=== PATIENT | female | born 1960 | race Caucasian/White ===

== ENCOUNTER 2017-04-09 13:18 | Inpatient (IN) | payer BC ==
[2017-04-09] MEDS ORDERED: Morphine 10 MG/ML Syringe IV ONE (13:57)
[2017-04-09] MEDS ORDERED: Ketorolac 30 MG/ML SDV IVPUSH ONE (13:57)
[2017-04-09] MEDS ORDERED: Ondansetron 4 MG/2 ML SDV IVPUSH ONE (13:57)
[2017-04-09] MEDS ORDERED: Sodium Chloride 0.9% 1,000 ML IV ONE (13:57)
--- NOTE | 2017-04-09 14:12 | EDM.PDOC ---
ED HPI GENERAL MEDICAL PROBLEM - General Chief Complaint: Abdominal Pain Stated Complaint: ABDOMINAL PAIN Time Seen by Provider: 04/09/17 13:45 Source of Information: Reports: Patient, Family History Limitations: Reports: No Limitations - History of Present Illness INITIAL COMMENTS - FREE TEXT/NARRATIVE: History of present illness: [56-year-old female comes in complaining of left-sided abdominal pain. Patient has underlying Parkinson's and indicated she also has a history of colitis.] Review of systems: As per history of present illness and below otherwise all systems reviewed and negative. Past medical history: As per history of present illness and as reviewed below otherwise noncontributory. Surgical history: As per history of present illness and as reviewed below otherwise noncontributory. Social history: No reported history of drug or alcohol abuse. Family history: As per history of present illness and as reviewed below otherwise noncontributory. Physical exam: HEENT: Atraumatic, normocephalic, pupils reactive, negative for conjunctival pallor or scleral icterus, mucous membranes moist, throat clear, neck supple, nontender, trachea midline. Lungs: Clear to auscultation, breath sounds equal bilaterally, chest nontender. Heart: S1S2, regular, negative for clicks, rubs, or JVD. Abdomen: soft, nondistended, exquisite tenderness to both upper and lower quadrants on the left. Negative for masses or hepatosplenomegaly. Negative for costovertebral tenderness. Pelvis: Stable nontender. Genitourinary: Deferred. Rectal: Deferred. Extremities: Atraumatic, negative for cords or calf pain. Neurovascular unremarkable. Neuro: Awake, alert, oriented. Cranial nerves II through XII unremarkable. Cerebellum unremarkable. Motor and sensory unremarkable throughout. Exam nonfocal. Diagnostics: [CBC, CMP, amylase, lipase, UA, CT of abdomen] Therapeutics: [IV fluid, morphine, Zofran,] Impression: [Diverticulitis] Plan: [admit to dr Roger ] Definitive disposition and diagnosis as appropriate pending reevaluation and review of above. Duration: Day(s): Left Lower Abdominal pain Pain Score (Numeric/FACES): 6 - Related Data Allergies Allergy/AdvReac Type Severity Reaction Status Date / Time pramipexole [From Mirapex] Allergy impulsivene Verified 04/09/17 13:51 ss ropinirole [From Requip] Allergy impulsivene Verified 04/09/17 13:51 ss Home Meds: Home Meds Aspirin [Halfprin] 81 mg PO ONETIME 04/09/17 [History] Carbidopa/Levodopa [Carbidopa-Levo 25-100 MG ODT] 1 tab PO QID 04/09/17 [History ] ED ROS GENERAL - Review of Systems Review Of Systems: See Below (History of present illness) ED EXAM, GI/ABD - Physical Exam Exam: See Below (History of present illness) Course - Vital Signs Last Recorded V/S: Last Vital Signs Temp 36.5 C 04/09/17 19:15 Pulse 85 04/09/17 19:15 Resp 16 04/09/17 19:15 BP 137/75 04/09/17 19:15 Pulse Ox 96 04/09/17 19:15 - Orders/Labs/Meds Orders: Active Orders 24 hr Category Date Time Status Patient Status [ADT] Stat ADT 04/09/17 19:44 Ordered Abdomen Pelvis w Cont [CT] Stat Exams 04/09/17 16:49 Taken Levofloxacin/Dextrose 5%-Water [Levaquin in D5W 750 MG/ Med 04/09/17 19:43 Ordered 150 ML] 750 mg Premix Bag 1 bag IV ONETIME metroNIDAZOLE/Normal Saline [Flagyl 500 MG in NS 100 ML Med 04/09/17 19:43 Ordered ] 500 mg Premix Bag 1 bag IV ONETIME Medication Orders Levofloxacin/Dextrose 750 mg/ (Premix) 150 mls @ 100 mls/hr IV ONETIME ONE Stop: 04/09/17 21:12 Metronidazole 500 mg/ Premix 100 mls @ 100 mls/hr IV ONETIME ONE Stop: 04/09/17 20:42 Labs: Laboratory Tests 04/09/17 04/09/17 04/09/17 Range/Units 14:40 14:40 16:30 WBC 11.55 H (4.0-11.0) K/uL RBC 4.54 (4.30-5.90) M/uL Hgb 15.0 (12.0-16.0) g/dL Hct 43.9 (36.0-46.0) % MCV 96.7 (80.0-98.0) fL MCH 33.0 H (27.0-32.0) pg MCHC 34.2 (31.0-37.0) g/dL RDW Std Deviation 48.8 (28.0-62.0) fl RDW Coeff of Scott 14 (11.0-15.0) % Plt Count 217 (150-400) K/uL MPV 10.60 (7.40-12.00) fL Neut % (Auto) 77.1 (48.0-80.0) % Lymph % (Auto) 13.0 L (16.0-40.0) % [place] % (Auto) 9.4 (0.0-15.0) % Eos % (Auto) 0.3 (0.0-7.0) % Baso % (Auto) 0.2 (0.0-1.5) % Neut # (Auto) 8.9 H (1.4-5.7) K/uL Lymph # (Auto) 1.5 (0.6-2.4) K/uL [place] # (Auto) 1.1 H (0.0-0.8) K/uL Eos # (Auto) 0.0 (0.0-0.7) K/uL Baso # (Auto) 0.0 (0.0-0.1) K/uL Nucleated RBC % 0.0 /100WBC Nucleated RBCs # 0 K/uL Sodium 140 (136-146) mmol/L Potassium 3.8 (3.5-5.1) mmol/L Chloride 106 (98-110) mmol/L Carbon Dioxide 24 (21-31) mmol/L BUN 25 H (6.0-23.0) mg/dL Creatinine 0.8 (0.6-1.5) mg/dL Est Cr Clr Drug Dosing 80.15 mL/min Estimated GFR (MDRD) > 60.0 ml/min Glucose 102 (60-110) mg/dL Calcium 9.4 (8.8-10.8) mg/dL Total Bilirubin 0.8 (0.1-1.5) mg/dL AST 14 (5-40) IU/L ALT 15 (8-54) IU/L Alkaline Phosphatase 88 (40-150) Total Protein 7.3 (6.0-8.0) g/dL Albumin 4.2 (3.5-5.0) g/dL Globulin 3.1 (2.0-3.5) g/dL Albumin/Globulin Ratio 1.4 (1.3-2.8) Amylase 41 (10-90) U/L Lipase 20 (7-80) U/L Urine Color YELLOW Urine Appearance CLEAR Urine pH 5.5 (5.0-8.0) Ur Specific [place] 1.025 (1.001-1.035) Urine Protein NEGATIVE (NEGATIVE) mg/dL Urine Glucose (UA) NEGATIVE (NEGATIVE) mg/dL Urine Ketones TRACE H (NEGATIVE) mg/dL Urine Occult Blood NEGATIVE (NEGATIVE) Urine Nitrite NEGATIVE (NEGATIVE) Urine Bilirubin SMALL H (NEGATIVE) Urine Ictotest NEGATIVE Urine Urobilinogen 0.2 (<2.0) EU/dL Ur Leukocyte Esterase NEGATIVE (NEGATIVE) Urine RBC 0-2 (0-2/HPF) Urine WBC 4-6 (0-5/HPF) Ur Epithelial Cells FEW (NONE-FEW) Urine Bacteria FEW (NEGATIVE) Urine Mucus LIGHT (NONE-MOD) Meds: Medications Generic Name Dose Route Start Last Admin Trade Name Gonsalo PRN Reason Stop Dose Admin Levofloxacin/Dextrose 750 mg/ 150 mls @ 100 mls/hr 04/09/17 19:43 Premix IV 04/09/17 21:12 ONETIME ONE Metronidazole 500 mg/ Premix 100 mls @ 100 mls/hr 04/09/17 19:43 IV 04/09/17 20:42 ONETIME ONE Discontinued Medications Generic Name Dose Route Start Last Admin Trade Name Gonsalo PRN Reason Stop Dose Admin Fentanyl 50 mcg 04/09/17 19:44 Sublimaze IVPUSH 04/09/17 19:45 ONETIME ONE Sodium Chloride 1,000 mls @ 999 mls/hr 04/09/17 13:57 04/09/17 14:45 Normal Saline IV 04/09/17 14:57 999 mls/hr STAT ONE Administration Iopamidol 95 ml 04/09/17 18:44 04/09/17 19:06 Isovue Multipack-370 (76%) IVPUSH 04/09/17 18:45 95 ml ONETIME STA Administration Ketorolac Tromethamine 30 mg 04/09/17 13:57 04/09/17 14:48 Toradol IVPUSH 04/09/17 13:58 30 mg ONETIME ONE Administration Morphine Sulfate 2 mg 04/09/17 13:57 04/09/17 14:56 Morphine IV 04/09/17 13:58 Not Given ONETIME ONE Morphine Sulfate 2 mg 04/09/17 14:30 04/09/17 14:54 Morphine IVPUSH 04/09/17 14:31 2 mg ONETIME ONE Administration Morphine Sulfate 2 mg 04/09/17 16:41 04/09/17 17:21 Morphine IVPUSH 04/09/17 16:42 2 mg ONETIME ONE Administration Ondansetron HCl 4 mg 04/09/17 13:57 04/09/17 14:45 Zofran IVPUSH 04/09/17 13:58 4 mg ONETIME ONE Administration Departure - Departure Time of Disposition: 19:47 Disposition: Admitted As Inpatient 67 Condition: Good Clinical Impression: Diverticulitis - Discharge Information Referrals: PCP,None [Primary Care Provider] - Forms: ED Department Discharge - My Orders Last 24 Hours: My Active Orders 04/09/17 16:49 Abdomen Pelvis w Cont [CT] Stat 04/09/17 19:43 Levofloxacin/Dextrose 5%-Water [Levaquin in D5W 750 MG/150 ML] 750 mg Premix Bag 1 bag IV ONETIME metroNIDAZOLE/Normal Saline [Flagyl 500 MG in NS 100 ML] 500 mg Premix Bag 1 bag IV ONETIME 04/09/17 19:44 Patient Status [ADT] Stat - Assessment/Plan Last 24 Hours: My Active Orders 04/09/17 16:49 Abdomen Pelvis w Cont [CT] Stat 04/09/17 19:43 Levofloxacin/Dextrose 5%-Water [Levaquin in D5W 750 MG/150 ML] 750 mg Premix Bag 1 bag IV ONETIME metroNIDAZOLE/Normal Saline [Flagyl 500 MG in NS 100 ML] 500 mg Premix Bag 1 bag IV ONETIME 04/09/17 19:44 Patient Status [ADT] Stat
[2017-04-09] MEDS ORDERED: Morphine 2 MG/ML Syringe IVPUSH ONE ×2 (14:30→16:41)
[2017-04-09 15:24] LABS: CHLORIDE,CL 106 mmol/L (98-110); SODIUM,NA 140 mmol/L (136-146)
[2017-04-09] MEDS ORDERED: Iopamidol 755 MG/ML 500 ML Multipack Bottle IVPUSH STA (18:44)
[2017-04-09] MEDS ORDERED: metroNIDAZOLE/Normal Saline 500 MG in Premix Bag 1 BAG IV ONE (19:43)
[2017-04-09] MEDS ORDERED: Levofloxacin/Dextrose 5%-Water 750 MG in Premix Bag 1 BAG IV ONE (19:43)
[2017-04-09] MEDS ORDERED: fentaNYL 100 MCG/2 ML SDV IVPUSH ONE (19:44)
[2017-04-09] MEDS ORDERED: Acetaminophen 325 MG Tab PO PRN (20:33)
[2017-04-09] MEDS ORDERED: Temazepam 15 MG Cap PO PRN (20:33)
[2017-04-09] MEDS ORDERED: Docusate Sodium 100 MG Cap PO PRN (20:33)
[2017-04-09] MEDS ORDERED: oxyCODONE 5 MG Tab PO PRN (20:33)
--- NOTE | 2017-04-09 20:38 | PCM.HP ---
H&P History of Present Illness - General Date of Service: 04/09/17 Source of Information: Patient History Limitations: Reports: No Limitations - History of Present Illness Initial Comments - Free Text/Narative: The patient is a 56-year-old lady who is presented to the emergency department with left-sided abdominal pain which is described as cramping, twisting and sharp. The patient had a sudden onset of this yesterday. The patient does have a documented history of diverticulosis and she believes that she ate something wrong. The patient is described a pain is 6 or 7 out of 10 and it has not been relieved by anything specifically. His been aggravated by eating. Patient also has described nausea and vomiting associated with this. She's had no diarrhea or constipation. In the emergency department the patient was started on Levaquin and Flagyl as well as narcotics for pain control. The patient has a history of Parkinson's disease and this medical condition is otherwise been stable. She has no other complaints at the present time. Onset of Symptoms: Reports: Sudden Duration of Symptoms: Reports: Hour(s):, Getting Worse Location: Reports: Abdomen Quality: Reports: Pressure, Same as Previous Episode, Stabbing Severity: Moderate Improves with: Reports: Medication Worsens with: Reports: Eating Associated Symptoms: Reports: Nausea/Vomiting Left Lower Abdominal pain Pain Score (Numeric/FACES): 6 - Related Data Allergies/Adverse Reactions: Allergies Allergy/AdvReac Type Severity Reaction Status Date / Time pramipexole [From Mirapex] Allergy impulsivene Verified 04/09/17 13:51 ss ropinirole [From Requip] Allergy impulsivene Verified 04/09/17 13:51 ss Home Medications: Home Meds Aspirin [Halfprin] 81 mg PO ONETIME 04/09/17 [History] Carbidopa/Levodopa [Carbidopa-Levo 25-100 MG ODT] 2 tab PO QID 04/09/17 [History ] Past Medical History HEENT History: Reports: None Cardiovascular History: Reports: Stents, Other (See Below) Other Cardiovascular History: Left thigh Respiratory History: Reports: None Gastrointestinal History: Reports: Diverticulosis Genitourinary History: Reports: Renal Calculus Musculoskeletal History: Reports: None Neurological History: Reports: Parkinson's Psychiatric History: Reports: None Endocrine/Metabolic History: Reports: None Hematologic History: Reports: None Immunologic History: Reports: None Oncologic (Cancer) History: Reports: None - Infectious Disease History Infectious Disease History: Reports: Chicken Pox, Measles, Mumps - Past Surgical History Female Surgical History: Reports: Lithotripsy/ESWL Social & Family History - Family History Family Medical History: Noncontributory - Tobacco Use Smoking Status *Q: Current Some Day Smoker Years of Tobacco use: 30 Packs/Tins Daily: 0.5 - Caffeine Use Caffeine Use: Reports: Soda - Recreational Drug Use Recreational Drug Use: No H&P Review of Systems - Review of Systems: Review Of Systems: See Below General: Reports: Weakness, Decreased Appetite. Denies: Fever HEENT: Reports: No Symptoms Pulmonary: Reports: No Symptoms Cardiovascular: Reports: No Symptoms Gastrointestinal: Reports: Abdominal Pain, Nausea, Vomiting Genitourinary: Reports: No Symptoms Musculoskeletal: Reports: No Symptoms Skin: Reports: No Symptoms Psychiatric: Reports: No Symptoms Neurological: Reports: Tremors (Chronic, Parkinson's disease) Hematologic/Lymphatic: Reports: No Symptoms Immunologic: Reports: No Symptoms Exam - Exam Exam: See Below - Vital Signs Vital Signs: Last Vital Signs Temp 36.5 C 04/09/17 19:15 Pulse 85 04/09/17 19:15 Resp 16 04/09/17 19:15 BP 137/75 04/09/17 19:15 Pulse Ox 96 04/09/17 19:15 Weight: 76.6 kg - Exam Quality Assessment: No: Supplemental Oxygen General: Alert, Oriented, Mild Distress HEENT: Conjunctiva Clear, EACs Clear, Mucosa Moist & [place], Nares Patent Neck: Supple, Trachea Midline Lungs: Clear to Auscultation, Normal Respiratory Effort Cardiovascular: Regular Rate, Regular Rhythm GI/Abdominal Exam: Soft, Tender (Left lower left upper quadrant), Abnormal Bowel Sounds Back Exam: Normal Inspection Extremities: No Pedal Edema Skin: Warm, Dry Neurological: Cranial Nerves Intact Neuro Extensive - Mental Status: Alert, Oriented x3 Neuro Extensive - Motor, Sensory, Reflexes: Tremor Psychiatric: Alert, Normal Affect, Normal Mood - Patient Data Result Diagrams: 04/10/17 05:24 04/10/17 05:24 *Q Meaningful Use (ADM) - VTE *Q VTE Criteria *Q: - Stroke *Q Stroke Criteria *Q: - AMI *Q AMI Criteria *Q: - Problem List (1) Diverticulitis SNOMED Code(s): 284928628 ICD Code: K57.92 - DVTRCLI OF INTEST, PART UNSP, W/O PERF OR ABSCESS W/O BLEED Status: Acute Priority: High Current Visit: Yes Qualifiers: Diverticulitis site: large intestine Diverticulitis bleeding: without bleeding Diverticulitis complication: without perforation or abscess Qualified Code(s): K57.32 - Diverticulitis of large intestine without perforation or abscess without bleeding (2) Parkinson's disease (tremor, stiffness, slow motion, unstable posture) SNOMED Code(s): 90978061 ICD Code: G20 - PARKINSON'S DISEASE Status: Chronic Priority: Medium Current Visit: Yes Problem List Initiated/Reviewed/Updated: Yes Orders Last 24hrs: Active Orders 24 hr Category Date Time Status Patient Status [ADT] Routine ADT 04/09/17 20:33 Ordered Ambulate [RC] PER UNIT ROUTINE Care 04/09/17 20:34 Ordered Oxygen Therapy [RC] PRN Care 04/09/17 20:33 Ordered Up With Assistance [RC] ASDIRECTED Care 04/09/17 20:33 Ordered VTE/DVT Education [RC] PER UNIT ROUTINE Care 04/09/17 20:33 Ordered Vital Signs [RC] Q4H Care 04/09/17 20:33 Ordered Nothing per Oral Now Diet [DIET] Diet 04/09/17 Breakfast Ordered CBC WITH AUTO DIFF [HEME] AM Lab 04/10/17 05:11 Ordered COMPREHENSIVE METABOLIC PN,CMP [CHEM] AM Lab 04/10/17 05:11 Ordered Acetaminophen [Tylenol] Med 04/09/17 20:33 Ordered 650 mg PO Q4H PRN Carbidopa/Levodopa [Carbidopa-Levo 25-100 MG ODT] Med 04/10/17 00:00 Ordered 1 tab PO QID Docusate Sodium [Colace] Med 04/09/17 20:33 Ordered 100 mg PO BID PRN Enoxaparin [Lovenox] Med 04/10/17 09:00 Ordered 40 mg SUBCUT DAILY Morphine Med 04/09/17 20:33 Ordered 2 mg IVPUSH Q2H PRN Ondansetron [Zofran] Med 04/09/17 20:45 Ordered 4 mg IVPUSH Q6H Sodium Chloride 0.9% @ 125 MLS/HR (1000ml) Med 04/09/17 20:45 Ordered Sodium Chloride 0.9% [Normal Saline] 1,000 ml IV ASDIRECTED Temazepam [Restoril] Med 04/09/17 20:33 Ordered 15 mg PO BEDTIME PRN oxyCODONE Med 04/09/17 20:33 Ordered 5 mg PO Q4H PRN Resuscitation Status Routine Resus Stat 04/09/17 20:33 Ordered Medication Orders Levofloxacin/Dextrose 750 mg/ (Premix) 150 mls @ 100 mls/hr IV ONETIME ONE Stop: 04/09/17 21:12 Metronidazole 500 mg/ Premix 100 mls @ 100 mls/hr IV ONETIME ONE Stop: 04/09/17 20:42 Last Admin: 04/09/17 20:09 Dose: 100 mls/hr Assessment/Plan Comment:: The patient is a 56-year-old lady who will be admitted to inpatient medical surgery floor secondary to her acute diverticulitis. The patient has had this before. The patient will be started on 2 IV antibiotics primarily Levaquin 500 milligrams IV daily as well as metronidazole 500 mg IV 3 times a day. The patient will be kept nothing by mouth for now. She's also fluid support with normal saline at 125 mg per hour. The patient will also be kept on her medication for her Parkinson's disease. I've recommended that the patient continue with an nothing by mouth diet as well as ice chips sparingly and sips of water with her medications. Nausea vomiting will be controlled with the use of Zofran. If the patient has had significant improvement she may likely appropriate for discharge in 1-2 days.
[2017-04-09] MEDS ORDERED: Ondansetron 4 MG/2 ML SDV IVPUSH SCH ×2 (20:45→21:00)
[2017-04-09] MEDS ORDERED: Ondansetron 4 MG/2 ML SDV IVPUSH PRN (22:59)
[2017-04-09] MEDS: Sodium Chloride 0.9% 1,000 ML IV SCH (23:15)
[2017-04-10] MEDS: Carbidopa/Levodopa 25-100 MG Tab PO SCH ×8 (01:34→23:40)
[2017-04-10] MEDS: Morphine 2 MG/ML Syringe IVPUSH PRN ×4 (03:24→20:07)
[2017-04-10 06:06] LABS: CHLORIDE,CL 110 mmol/L (98-110); SODIUM,NA 140 mmol/L (136-146)
[2017-04-10] MEDS: Sodium Chloride 0.9% 1,000 ML IV SCH ×2 (07:26→15:05)
[2017-04-10] MEDS: Enoxaparin 40 MG/0.4 ML Syringe SUBCUT SCH (08:33)
--- NOTE | 2017-04-10 11:59 | PCM.PN ---
- General Info Date of Service: 04/10/17 Admission Dx/Problem (Free Text): acute diverticulitis with intractable abdominal pain Subjective Update: better today. Functional Status: Reports: Pain Controlled. Denies: Tolerating Diet ( currently nothing by mouth) - Review of Systems General: Reports: Weakness HEENT: Reports: No Symptoms Pulmonary: Reports: No Symptoms Cardiovascular: Reports: No Symptoms Gastrointestinal: Reports: Abdominal Pain, Nausea Genitourinary: Reports: No Symptoms Musculoskeletal: Reports: No Symptoms Skin: Reports: No Symptoms Neurological: Reports: Tremors Psychiatric: Reports: No Symptoms - Patient Data Vitals - Most Recent: Last Vital Signs Temp 36.4 C 04/10/17 08:00 Pulse 72 04/10/17 08:00 Resp 16 04/10/17 08:00 BP 111/48 L 04/10/17 08:00 Pulse Ox 93 L 04/10/17 08:00 Weight - Most Recent: 76.6 kg I&O - Last 24 Hours: Intake & Output 04/09/17 04/10/17 04/10/17 22:59 06:59 14:59 Intake Total 40 Output Total 600 Balance -560 Lab Results Last 24 Hours: Laboratory Results - last 24 hr 04/10/17 04/10/17 Range/Units 05:24 05:24 WBC 8.84 (4.0-11.0) K/uL RBC 3.82 L (4.30-5.90) M/uL Hgb 12.3 (12.0-16.0) g/dL Hct 37.4 (36.0-46.0) % MCV 97.9 (80.0-98.0) fL MCH 32.2 H (27.0-32.0) pg MCHC 32.9 (31.0-37.0) g/dL RDW Std Deviation 48.7 (28.0-62.0) fl RDW Coeff of Scott 14 (11.0-15.0) % Plt Count 168 (150-400) K/uL MPV 10.70 (7.40-12.00) fL Neut % (Auto) 72.5 (48.0-80.0) % Lymph % (Auto) 16.3 (16.0-40.0) % [place] % (Auto) 10.3 (0.0-15.0) % Eos % (Auto) 0.8 (0.0-7.0) % Baso % (Auto) 0.1 (0.0-1.5) % Neut # (Auto) 6.4 H (1.4-5.7) K/uL Lymph # (Auto) 1.4 (0.6-2.4) K/uL [place] # (Auto) 0.9 H (0.0-0.8) K/uL Eos # (Auto) 0.1 (0.0-0.7) K/uL Baso # (Auto) 0.0 (0.0-0.1) K/uL Nucleated RBC % 0.0 /100WBC Nucleated RBCs # 0 K/uL Sodium 140 (136-146) mmol/L Potassium 4.5 (3.5-5.1) mmol/L Chloride 110 (98-110) mmol/L Carbon Dioxide 22 (21-31) mmol/L BUN 22 (6.0-23.0) mg/dL Creatinine 0.7 (0.6-1.5) mg/dL Est Cr Clr Drug Dosing 91.96 mL/min Estimated GFR (MDRD) > 60.0 ml/min Glucose 96 (60-110) mg/dL Calcium 8.5 L (8.8-10.8) mg/dL Total Bilirubin 0.8 (0.1-1.5) mg/dL AST 12 (5-40) IU/L ALT < 6 L (8-54) IU/L Alkaline Phosphatase 65 (40-150) Total Protein 5.9 L (6.0-8.0) g/dL Albumin 3.4 L (3.5-5.0) g/dL Globulin 2.5 (2.0-3.5) g/dL Albumin/Globulin Ratio 1.4 (1.3-2.8) Med Orders - Current: Current Medications Acetaminophen (Tylenol) 650 mg PO Q4H PRN PRN Reason: Pain (Mild 1-3)/fever Carbidopa/Levodopa (Sinemet 25-100 Mg) 2 tab PO Q4HR [facility] Docusate Sodium (Colace) 100 mg PO BID PRN PRN Reason: Constipation Enoxaparin Sodium (Lovenox) 40 mg SUBCUT DAILY [facility] Last Admin: 04/10/17 08:33 Dose: 40 mg Sodium Chloride (Normal Saline) 1,000 mls @ 125 mls/hr IV ASDIRECTED [facility] Last Admin: 04/10/17 07:26 Dose: 125 mls/hr Morphine Sulfate (Morphine) 2 mg IVPUSH Q2H PRN PRN Reason: Pain (severe 7-10) Stop: 04/10/17 20:36 Last Admin: 04/10/17 10:43 Dose: 2 mg Ondansetron HCl (Zofran) 4 mg IVPUSH Q6H PRN PRN Reason: Nausea/Vomiting Oxycodone HCl (Oxycodone) 5 mg PO Q4H PRN PRN Reason: Pain (moderate 4-6) Temazepam (Restoril) 15 mg PO BEDTIME PRN PRN Reason: Sleep Discontinued Medications Carbidopa/Levodopa (Sinemet 25-100 Mg) 1 tab PO QID [facility] Last Admin: 04/10/17 01:34 Dose: Not Given Carbidopa/Levodopa (Sinemet 25-100 Mg) 2 tab PO TID [facility] Last Admin: 04/10/17 07:28 Dose: Not Given Fentanyl (Sublimaze) 50 mcg IVPUSH ONETIME ONE Stop: 04/09/17 19:45 Last Admin: 04/09/17 20:09 Dose: 50 mcg Sodium Chloride (Normal Saline) 1,000 mls @ 999 mls/hr IV STAT ONE Stop: 04/09/17 14:57 Last Admin: 04/09/17 14:45 Dose: 999 mls/hr Levofloxacin/Dextrose 750 mg/ (Premix) 150 mls @ 100 mls/hr IV ONETIME ONE Stop: 04/09/17 21:12 Last Admin: 04/09/17 20:41 Dose: 100 mls/hr Metronidazole 500 mg/ Premix 100 mls @ 100 mls/hr IV ONETIME ONE Stop: 04/09/17 20:42 Last Admin: 04/09/17 20:09 Dose: 100 mls/hr Iopamidol (Isovue Multipack-370 (76%)) 95 ml IVPUSH ONETIME STA Stop: 04/09/17 18:45 Last Admin: 04/09/17 19:06 Dose: 95 ml Ketorolac Tromethamine (Toradol) 30 mg IVPUSH ONETIME ONE Stop: 04/09/17 13:58 Last Admin: 04/09/17 14:48 Dose: 30 mg Morphine Sulfate (Morphine) 2 mg IV ONETIME ONE Stop: 04/09/17 13:58 Last Admin: 04/09/17 14:56 Dose: Not Given Morphine Sulfate (Morphine) 2 mg IVPUSH ONETIME ONE Stop: 04/09/17 14:31 Last Admin: 04/09/17 14:54 Dose: 2 mg Morphine Sulfate (Morphine) 2 mg IVPUSH ONETIME ONE Stop: 04/09/17 16:42 Last Admin: 04/09/17 17:21 Dose: 2 mg Ondansetron HCl (Zofran) 4 mg IVPUSH ONETIME ONE Stop: 04/09/17 13:58 Last Admin: 04/09/17 14:45 Dose: 4 mg Ondansetron HCl (Zofran) 4 mg IVPUSH Q6H [facility] Last Admin: 04/10/17 01:44 Dose: Not Given - Exam Quality Assessment: No: Supplemental Oxygen General: Alert, Oriented, No Acute Distress HEENT: Pupils Equal, Pupils Reactive Neck: Supple, Trachea Midline Lungs: Clear to Auscultation, Normal Respiratory Effort Cardiovascular: Regular Rate, Regular Rhythm GI/Abdominal Exam: Normal Bowel Sounds, Soft, Tender (left lower quadrant). No : Guarding, Rigid, Rebound Back Exam: Normal Inspection Extremities: No Pedal Edema Skin: Warm, Dry Neurological: No New Focal Deficit Psy/Mental Status: Alert, Normal Affect - Problem List & Annotations (1) Diverticulitis SNOMED Code(s): 763501802 Code(s): K57.92 - DVTRCLI OF INTEST, PART UNSP, W/O PERF OR ABSCESS W/O BLEED Status: Acute Priority: High Current Visit: Yes Qualifiers: Diverticulitis site: large intestine Diverticulitis bleeding: without bleeding Diverticulitis complication: without perforation or abscess Qualified Code(s): K57.32 - Diverticulitis of large intestine without perforation or abscess without bleeding (2) Parkinson's disease (tremor, stiffness, slow motion, unstable posture) SNOMED Code(s): 21133804 Code(s): G20 - PARKINSON'S DISEASE Status: Chronic Priority: Medium Current Visit: Yes - Problem List Review Problem List Initiated/Reviewed/Updated: Yes - My Orders Last 24 Hours: My Active Orders 04/09/17 20:33 Patient Status [ADT] Routine Oxygen Therapy [RC] PRN Up With Assistance [RC] ASDIRECTED VTE/DVT Education [RC] PER UNIT ROUTINE Vital Signs [RC] Q4H Acetaminophen [Tylenol] 650 mg PO Q4H PRN Docusate Sodium [Colace] 100 mg PO BID PRN Morphine 2 mg IVPUSH Q2H PRN Temazepam [Restoril] 15 mg PO BEDTIME PRN oxyCODONE 5 mg PO Q4H PRN Resuscitation Status Routine 04/09/17 20:34 Ambulate [RC] PER UNIT ROUTINE 04/09/17 20:45 Sodium Chloride 0.9% [Normal Saline] 1,000 ml IV ASDIRECTED 04/09/17 22:59 Ondansetron [Zofran] 4 mg IVPUSH Q6H PRN 04/10/17 09:00 Enoxaparin [Lovenox] 40 mg SUBCUT DAILY 04/10/17 12:00 Carbidopa/Levodopa [Sinemet 25-100 mg] 2 tab PO Q4HR - Plan Plan:: The patient is a 56-year-old lady who was admitted yesterday secondary to diverticulitis as well as severe left-sided abdominal pain. The patient has been kept on IV Levaquin and Flagyl and she is tolerating this well. These medications will be continued. Also the patient's carbidopa/levodopa 25/100 mg will be continued every 4 hours at a dose of 2 tablets. The patient's Parkinson tremors have also been reduced with the use of the morphine for pain control for her diverticulitis. The patient will be kept nothing by mouth for now. Also her diet should be advanced tomorrow as tolerated. For the patient and her that if she does well in the morning and her pain is well-controlled and her signs of involvement normalized that she'll likely be appropriate for discharge. Of also informed patient that she will should be discharged on 2 forms of by mouth antibiotics. For now the patient is to continue on her fluid support with normal saline at 125 mL per hour. She's been encouraged to ambulate.
[2017-04-10] MEDS: metroNIDAZOLE/Normal Saline 500 MG in Premix Bag 1 BAG IV SCH ×2 (15:43→23:41)
[2017-04-10] MEDS ORDERED: Levofloxacin/Dextrose 5%-Water 750 MG in Premix Bag 1 BAG IV SCH (20:00)
[2017-04-11] MEDS: Sodium Chloride 0.9% 1,000 ML IV SCH (02:11)
[2017-04-11] MEDS ORDERED: Morphine 2 MG/ML Syringe IVPUSH PRN (02:11)
[2017-04-11] MEDS: Carbidopa/Levodopa 25-100 MG Tab PO SCH ×3 (04:08→11:17)
[2017-04-11] MEDS: metroNIDAZOLE/Normal Saline 500 MG in Premix Bag 1 BAG IV SCH ×2 (05:17→11:18)
[2017-04-11 06:33] LABS: CHLORIDE,CL 111 mmol/L (98-110); SODIUM,NA 143 mmol/L (136-146)
[2017-04-11] MEDS ORDERED: Carbidopa/Levodopa 25-100 MG Tab PO SCH (08:30)
[2017-04-11] MEDS: Enoxaparin 40 MG/0.4 ML Syringe SUBCUT SCH (08:50)
[2017-04-11 11:52] VITALS: BP 120/64
[2017-04-11] MEDS ORDERED: metroNIDAZOLE 250 MG Tab PO SCH (14:30)
[2017-04-11] MEDS ORDERED: Levofloxacin 500 MG Tab PO SCH (14:30)
--- NOTE | 2017-04-11 14:31 | PCM.DCSUM1 ---
Discharge Summary - Hospital Course Free Text/Narrative:: The patient was admitted secondary to abdominal pain and diverticulitis. - Discharge Data Discharge Date: 04/11/17 Discharge Disposition: Home, Self-Care 01 Condition: Good - Discharge Diagnosis/Problem(s) (1) Diverticulitis SNOMED Code(s): 998925111 ICD Code: K57.92 - DVTRCLI OF INTEST, PART UNSP, W/O PERF OR ABSCESS W/O BLEED Status: Resolved Priority: High Current Visit: Yes Qualifiers: Diverticulitis site: large intestine Diverticulitis bleeding: without bleeding Diverticulitis complication: without perforation or abscess Qualified Code(s): K57.32 - Diverticulitis of large intestine without perforation or abscess without bleeding (2) Parkinson's disease (tremor, stiffness, slow motion, unstable posture) SNOMED Code(s): 50612263 ICD Code: G20 - PARKINSON'S DISEASE Status: Chronic Priority: Medium Current Visit: Yes - Patient Summary/Data Hospital Course: he patient is a 56-year-old lady who was admitted yesterday secondary to diverticulitis as well as severe left-sided abdominal pain. The patient has been kept on IV Levaquin and Flagyl and she is tolerating this well. These medications will be continued. Also the patient's carbidopa/levodopa 25/100 mg will be continued every 4 hours at a dose of 2 tablets. The patient's Parkinson tremors have also been reduced with the use of the morphine for pain control for her diverticulitis. The patient will be kept nothing by mouth for now. Also her diet should be advanced tomorrow as tolerated. For the patient and her that if she does well in the morning and her pain is well-controlled and her signs of involvement normalized that she'll likely be appropriate for discharge. Of also informed patient that she will should be discharged on 2 forms of by mouth antibiotics. For now the patient is to continue on her fluid support with normal saline at 125 mL per hour. She's been encouraged to ambulate. The patient was kept on IV fluids, IV antibiotics consisting of Levaquin and metronidazole 500 mg 4 times a day. By day of discharge the patient 's diet was advanced. The patient's pain had resolved. She was tolerating a diet without difficulty. The patient will be discharged home today with recommendation to continue oral Levaquin 500 mg by mouth daily along with metronidazole 500 mg every 8 hours until gone. The patient says that she does not need pain medications. She'll be discharged with a recommendation for her diet as tolerated. Exercise as tolerated and she is to follow with her primary care physician. - Patient Instructions Diet: Heart Healthy Diet Activity: As Tolerated - Discharge Plan Prescriptions/Med Rec: Levofloxacin [Levaquin] 500 mg PO Q24H #10 tablet metroNIDAZOLE 500 mg PO Q8H #30 tablet Home Medications: Home Meds Aspirin [Halfprin] 81 mg PO DAILY 04/09/17 [History] Carbidopa/Levodopa [Carbidopa-Levo 25-100 MG ODT] 2 tab PO Q4HR 04/09/17 [ History] Carbidopa/Levodopa [Sinemet 25-100 mg] 2 tab PO Q4HR tablet 04/11/17 [Rx] Levofloxacin [Levaquin] 500 mg PO Q24H #10 tablet 04/11/17 [Rx] metroNIDAZOLE 500 mg PO Q8H #30 tablet 04/11/17 [Rx] Forms: ED Department Discharge Referrals: PCP,None [Primary Care Provider] - - General Info Date of Service: 04/11/17 Admission Dx/Problem (Free Text: acute diverticulitis with intractable abdominal pain Subjective Update: better today. Functional Status: Reports: Pain Controlled, Tolerating Diet - Review of Systems General: Reports: No Symptoms HEENT: Reports: No Symptoms Pulmonary: Reports: No Symptoms Cardiovascular: Reports: No Symptoms Gastrointestinal: Reports: No Symptoms Genitourinary: Reports: No Symptoms Musculoskeletal: Reports: No Symptoms Skin: Reports: No Symptoms Neurological: Reports: No Symptoms Psychiatric: Reports: No Symptoms - Patient Data Vitals - Most Recent: Last Vital Signs Temp 36.3 C 04/11/17 11:51 Pulse 68 04/11/17 11:51 Resp 18 04/11/17 11:51 BP 120/64 04/11/17 11:51 Pulse Ox 94 L 04/11/17 11:51 Weight - Most Recent: 76.6 kg I&O - Last 24 hours: Intake & Output 04/10/17 04/11/17 04/11/17 22:59 06:59 14:59 Intake Total 1240 1130 Output Total 950 1330 Balance 290 -200 Lab Results - Last 24 hrs: Laboratory Results - last 24 hr 04/11/17 04/11/17 Range/Units 05:43 05:43 WBC 5.58 (4.0-11.0) K/uL RBC 3.73 L (4.30-5.90) M/uL Hgb 12.2 (12.0-16.0) g/dL Hct 36.4 (36.0-46.0) % MCV 97.6 (80.0-98.0) fL MCH 32.7 H (27.0-32.0) pg MCHC 33.5 (31.0-37.0) g/dL RDW Std Deviation 47.3 (28.0-62.0) fl RDW Coeff of Scott 13 (11.0-15.0) % Plt Count 169 (150-400) K/uL MPV 10.20 (7.40-12.00) fL Neut % (Auto) 61.3 (48.0-80.0) % Lymph % (Auto) 26.3 (16.0-40.0) % Harmon % (Auto) 10.0 (0.0-15.0) % Eos % (Auto) 2.2 (0.0-7.0) % Baso % (Auto) 0.2 (0.0-1.5) % Neut # (Auto) 3.4 (1.4-5.7) K/uL Lymph # (Auto) 1.5 (0.6-2.4) K/uL Harmon # (Auto) 0.6 (0.0-0.8) K/uL Eos # (Auto) 0.1 (0.0-0.7) K/uL Baso # (Auto) 0.0 (0.0-0.1) K/uL Nucleated RBC % 0.0 /100WBC Nucleated RBCs # 0 K/uL Sodium 143 (136-146) mmol/L Potassium 4.1 (3.5-5.1) mmol/L Chloride 111 H (98-110) mmol/L Carbon Dioxide 24 (21-31) mmol/L BUN 12 (6.0-23.0) mg/dL Creatinine 0.7 (0.6-1.5) mg/dL Est Cr Clr Drug Dosing 91.96 mL/min Estimated GFR (MDRD) > 60.0 ml/min Glucose 83 (60-110) mg/dL Calcium 8.5 L (8.8-10.8) mg/dL Med Orders - Current: Current Medications Acetaminophen (Tylenol) 650 mg PO Q4H PRN PRN Reason: Pain (Mild 1-3)/fever Carbidopa/Levodopa (Sinemet 25-100 Mg) 2 tab PO Q4HR [facility] Last Admin: 04/11/17 11:17 Dose: 2 tab Docusate Sodium (Colace) 100 mg PO BID PRN PRN Reason: Constipation Enoxaparin Sodium (Lovenox) 40 mg SUBCUT DAILY [facility] Last Admin: 04/11/17 08:50 Dose: 40 mg Sodium Chloride (Normal Saline) 1,000 mls @ 125 mls/hr IV ASDIRECTED [facility] Last Admin: 04/11/17 02:11 Dose: 125 mls/hr Levofloxacin (Levaquin) 500 mg PO Q24H [facility] Metronidazole (Metronidazole) 250 mg PO Q6H [facility] Morphine Sulfate (Morphine) 2 mg IVPUSH Q4H PRN PRN Reason: Pain Ondansetron HCl (Zofran) 4 mg IVPUSH Q6H PRN PRN Reason: Nausea/Vomiting Oxycodone HCl (Oxycodone) 5 mg PO Q4H PRN PRN Reason: Pain (moderate 4-6) Last Admin: 04/11/17 04:08 Dose: 5 mg Temazepam (Restoril) 15 mg PO BEDTIME PRN PRN Reason: Sleep Discontinued Medications Carbidopa/Levodopa (Sinemet 25-100 Mg) 1 tab PO QID [facility] Last Admin: 04/10/17 01:34 Dose: Not Given Carbidopa/Levodopa (Sinemet 25-100 Mg) 2 tab PO TID [facility] Last Admin: 04/10/17 07:28 Dose: Not Given Fentanyl (Sublimaze) 50 mcg IVPUSH ONETIME ONE Stop: 04/09/17 19:45 Last Admin: 04/09/17 20:09 Dose: 50 mcg Sodium Chloride (Normal Saline) 1,000 mls @ 999 mls/hr IV STAT ONE Stop: 04/09/17 14:57 Last Admin: 04/09/17 14:45 Dose: 999 mls/hr Levofloxacin/Dextrose 750 mg/ (Premix) 150 mls @ 100 mls/hr IV ONETIME ONE Stop: 04/09/17 21:12 Last Admin: 04/09/17 20:41 Dose: 100 mls/hr Metronidazole 500 mg/ Premix 100 mls @ 100 mls/hr IV ONETIME ONE Stop: 04/09/17 20:42 Last Admin: 04/09/17 20:09 Dose: 100 mls/hr Levofloxacin/Dextrose 750 mg/ (Premix) 150 mls @ 100 mls/hr IV Q24H [facility] Last Admin: 04/10/17 19:51 Dose: 100 mls/hr Metronidazole 500 mg/ Premix 100 mls @ 100 mls/hr IV QID [facility] Last Admin: 04/11/17 11:18 Dose: 100 mls/hr Iopamidol (Isovue Multipack-370 (76%)) 95 ml IVPUSH ONETIME STA Stop: 04/09/17 18:45 Last Admin: 04/09/17 19:06 Dose: 95 ml Ketorolac Tromethamine (Toradol) 30 mg IVPUSH ONETIME ONE Stop: 04/09/17 13:58 Last Admin: 04/09/17 14:48 Dose: 30 mg Morphine Sulfate (Morphine) 2 mg IV ONETIME ONE Stop: 04/09/17 13:58 Last Admin: 04/09/17 14:56 Dose: Not Given Morphine Sulfate (Morphine) 2 mg IVPUSH ONETIME ONE Stop: 04/09/17 14:31 Last Admin: 04/09/17 14:54 Dose: 2 mg Morphine Sulfate (Morphine) 2 mg IVPUSH ONETIME ONE Stop: 04/09/17 16:42 Last Admin: 04/09/17 17:21 Dose: 2 mg Morphine Sulfate (Morphine) 2 mg IVPUSH Q2H PRN PRN Reason: Pain (severe 7-10) Stop: 04/10/17 20:36 Last Admin: 04/10/17 20:07 Dose: 2 mg Ondansetron HCl (Zofran) 4 mg IVPUSH ONETIME ONE Stop: 04/09/17 13:58 Last Admin: 04/09/17 14:45 Dose: 4 mg Ondansetron HCl (Zofran) 4 mg IVPUSH Q6H [facility] Last Admin: 04/10/17 01:44 Dose: Not Given - Exam Quality Assessment: Denies: Supplemental Oxygen General: Reports: Alert, Oriented, Cooperative, No Acute Distress HEENT: Reports: Pupils Equal, Pupils Reactive Neck: Reports: Supple, Trachea Midline Lungs: Reports: Clear to Auscultation, Normal Respiratory Effort Cardiovascular: Reports: Regular Rate, Regular Rhythm GI/Abdominal Exam: Normal Bowel Sounds, Soft, Non-Tender, No Distention Back Exam: Reports: Normal Inspection Extremities: No Pedal Edema Skin: Reports: Warm, Dry Neurological: Reports: No New Focal Deficit Psy/Mental Status: Reports: Alert, Normal Affect *Q Meaningful Use (DIS) - VTE *Q VTE Criteria *Q: - Stroke *Q Stroke Criteria *Q: - AMI *Q AMI Criteria *Q:
--- NOTE | 2017-04-11 15:11 | CT ---
EXAM DATE: 04/09/17 PATIENT'S AGE: 56 Patient: IVORY AYOUB Facility: [place], [place] Site . Site : [id number] Study: CT Abdomen/Pelvis [id number]/9/2017 7:12:54 PM Ordering Physician: Doctor Galloway Final Report: INDICATION: Abdominal Pain, HX Kidney Stone, Diverticulitis, Parkinsons. HISTORY: Abdominal pain. Kidney stone. Diverticulitis. COMPARISON: None. TECHNIQUE: CT of the abdomen and pelvis. 95 cc of Isovue-370 IV. Coronal/sagittal reconstruction images. FINDINGS: Lung bases: No pleural or pericardial effusion. The heart size is normal. The lung bases demonstrate dependent atelectasis. There is no basilar pneumothorax. Abdomen/pelvis: No solid hepatic mass. Hepatic morphology is normal. No inflammatory changes about the gallbladder. There is a small mass in the left adrenal gland measuring 10 mm on image 36, series 201. This is indeterminate. Right adrenal gland is normal. Symmetric nephrograms. No pancreatic mass or pancreatic duct dilation. No glandular atrophy. Urinary bladder is normal. No adnexal mass. There is colonic diverticulosis, with diverticulitis involving the descending colon. This is seen on image 65. There is thickening of Gerota`s fascia and the lateroconal fascia. Similar findings are present about the transverse colon on image 75. No drainable fluid collection. After symptoms resolve, consider optical colonoscopy to exclude an underlying mass. Normal caliber appendix. Visceral artery branches are patent. No abdominal aortic aneurysm. There is a stent present within the left common/ external iliac vein. 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 Patency of the stent cannot be assessed on this exam. The bone windows demonstrate no suspicious lytic or blastic bone lesions in the thoracolumbar spine. The alignment is preserved. 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 IMPRESSION: 1. Multifocal diverticulitis in the colon. This is seen in the proximal descending colon, and transverse colon. 2. No free intraperitoneal air or drainable fluid collection. 3. After symptoms resolve, consider optical colonoscopy to exclude an underlying mass. 4. No abdominal/pelvic lymphadenopathy. Dictated by Lamont Mckeon MD @ 04/09/2017 7:40:53 PM Dictated by: Lamont Mckeon MD @ 04/09/2017 19:41:09 (Electronic Signature) Report Signed by Proxy. [facility]
== END 2017-04-11 15:30 | disposition home or self-care (01) | DRG 244 ==
LOC: MW.ED 13:18 → MW.MS 20:01
PROVIDERS: ADMIT Internal Medicine; ATTEND Internal Medicine
DX: K57.32 Diverticulitis of large intestine without perforation or abscess without bleeding (principal); R10.9 Unspecified abdominal pain; G20 Parkinson's disease; Z88.8 Allergy status to other drugs, medicaments and biological substances; Z79.899 Other long term (current) drug therapy; F17.210 Nicotine dependence, cigarettes, uncomplicated
CPT/HCPCS: 36415; 74177; 74177-26; 80048; 80053; 81001; 82150; 83690; 85025; 96365; 96375; 99283; 99285-25; A9270-GY; J1650; J1885; J1956; J2270; J2405; J3010; J7040; Q9967